=== PATIENT | female | born 1960 | race Caucasian/White ===

== ENCOUNTER 2016-08-28 12:42 | Emergency (ER) | payer BC, MEDICARE ==
[~2016-08-28] VITALS: Ht 160 cm; Wt 59.0 kg
[~2016-08-28 12:42] MED LIST: CALCTAB98 PO; CLON1 PO; CO Q100C7 PO; DIGE1CAP6 PO; OMEG306C PO; VITA200T5 PO; [UNRECOGNIZED DRUG - CODE] PO
[2016-08-28 12:50] VITALS: BP 168/93; PULSE 89; RESP 18; TEMP 98.4; O2SAT 97
[2016-08-28 13:23] LABS: AUTOMATED NEUTROPHIL # 3.1 TH/MM3 (1.8-7.7); BASOPHIL % 0.2 % (0.0-2.0); EOSINOPHIL % 0.3 % (0.0-4.0); HEMATOCRIT 37.6 % (35.0-46.0); HEMO FLAGS DIFF FINAL; LYMPH % 28.6 % (9.0-44.0); LYMPHOCYTE # 1.4 TH/MM3 (1.0-4.8); MEAN CELL VOLUME 87.8 FL (80.0-100.0); MEAN CORPUSCULAR HEMOGLOBIN 29.9 PG (27.0-34.0); MEAN CORPUSCULAR HGB CONC 34.1 % (32.0-36.0); MONO % 6.2 % (0.0-8.0); NEUT % 64.7 % (16.0-70.0); PLATELET COUNT 200 TH/MM3 (150-450); RED BLOOD COUNT 4.29 MIL/MM3 (4.00-5.30); RED CELL DISTRIBUTION WIDTH 13.2 % (11.6-17.2); WHITE BLOOD COUNT 4.8 TH/MM3 (4.0-11.0)
[2016-08-28 13:56] VITALS: BP 137/75; PULSE 83; O2SAT 100
[2016-08-28 14:00] LABS: ANION GAP 8 MEQ/L (5-15); BICARBONATE 29.2 MEQ/L (21.0-32.0); BLOOD UREA NITROGEN 9 MG/DL (7-18); CHLORIDE 104 MEQ/L (98-107); GLOMERULAR FILTRATION RATE 85 ML/MIN (>89); SODIUM (NA) 141 MEQ/L (136-145)
[2016-08-28] MEDS ORDERED: LIDOCAINE VISCOUS 2% SOLN 15 ML UDC PO ONE (14:00)
[2016-08-28] MEDS ORDERED: SODIUM CHLOR 0.9% 1000 ML INJ 1,000 ML IV SCH (14:00)
[2016-08-28] MEDS ORDERED: ALUMINUM/MAGNESIUM/SIMETH 30 ML CUP PO ONE (14:00)
[2016-08-28] MEDS ORDERED: SODIUM CHLORIDE 0.9% FLUSH 10 ML FLUSH IV FLUSH PRN (14:00)
[2016-08-28 14:04] LABS: CREATINE KINASE 149 U/L (26-192)
[2016-08-28 14:16] LABS: CKMB LESS THAN 0.5 NG/ML (0.5-3.6)
[2016-08-28 14:28] LABS: BLOOD, URINE NEG (NEG); GLUCOSE,URINE NEG (NEG); KETONE, URINE NEG (NEG); NITRITE,URINE NEG (NEG); PH, URINE 7.5 (5.0-8.5); URINE COLOR LIGHT-YELLOW (YELLW/STRAW)
[2016-08-28 14:36] LABS: COMMENT (UR) CULT NOT INDICATED; CULTURE IF INDICATED CULT NOT INDICATED
[2016-08-28 14:42] LABS: APTT (PATIENT) 26.9 SEC (24.3-30.1)
[2016-08-28] MEDS ORDERED: IOHEXOL 350 MG/ML 10 ML VIAL (for RAD DIAG) IV ONE (14:45)
--- NOTE | 2016-08-28 14:45 | PD ---
HPI Chief Complaint: Abdominal Pain Time Seen by Provider: 14:39 Travel History International Travel<30 days: No Contact w/Intl Traveler<30days: No Traveled to known affect area: No History of Present Illness HPI Patient is a 56-year-old female presented to him or tremor evaluation of chest pressure. Patient states it started 3 days ago, it has gradually migrated down to the epigastric area. Patient states at times it feels as if she has a vice inspector structural bonding around her stomach. She states her stomach feels nervous. These episodes last about 20 minutes in duration, when they do occur she feels dizzy and lightheaded and has a squeezing sensation in her throat and her heart flutters. Patient states that this occurs several times a year, she takes hydrochloric acid tablets that she gets at the [employer] store to help with her digestion. She denies any history of gastritis but states she has had an upper endoscopy as well as gastric emptying study. 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) Substance Use: No Allergies-Medications (Allergen,Severity, Reaction): Coded Allergies: No Known Allergies (Unverified , 08/28/16) Reported Meds & Prescriptions Reported Meds & Active Scripts Active Review of Systems Except as stated in HPI: all other systems reviewed are Neg General / Constitutional: No: Fever, Chills Eyes: No: Blurred Vision HENT: Positive: Lightheadedness, No: Headaches Cardiovascular: Positive: Chest Pain or Discomfort, Palpitations Respiratory: No: Cough, Shortness of Breath, Wheezing Gastrointestinal: Positive: Abdominal Pain (epigastric), No: Nausea, Vomiting , Diarrhea Genitourinary: No: Dysuria Musculoskeletal: No: Myalgias Neurologic: Positive: Dizziness, No: Focal Abnormalities, Change in Mentation Psychiatric: Positive: Anxiety Physical Exam Narrative GENERAL: Well-developed, well-nourished, alert female. Resting comfortably in no acute distress. SKIN: Focused skin assessment warm/dry. HEAD: Atraumatic. Normocephalic. EYES: Pupils equal and round. No scleral icterus. No injection or drainage. ENT: No nasal bleeding or discharge. Mucous membranes pink and moist. NECK: Trachea midline. No JVD. CARDIOVASCULAR: Regular rate and rhythm. No murmur appreciated. RESPIRATORY: No accessory muscle use. Clear to auscultation. Breath sounds equal bilaterally. GASTROINTESTINAL: Abdomen soft, non-tender, nondistended. Hepatic and splenic margins not palpable. The bowel sounds, no rebound, no guarding. MUSCULOSKELETAL: No obvious deformities. No clubbing. No cyanosis. No edema. NEUROLOGICAL: Awake and alert. No obvious cranial nerve deficits. Motor grossly within normal limits. Normal speech. PSYCHIATRIC: Anxious mood and affect; insight and judgment normal. Data Data Last Documented VS Vital Signs Date Time Temp Pulse Resp B/P Pulse Ox O2 Delivery O2 Flow Rate FiO2 08/28/16 13:56 83 137/75 100 Room Air 08/28/16 12:50 98.4 18 Orders Electrocardiogram (08/28/16 12:52) Complete Blood Count With Diff (08/28/16 12:52) Basic Metabolic Panel (Bmp) (08/28/16 12:52) Ckmb (Isoenzyme) Profile (08/28/16 12:52) Troponin I (08/28/16 12:52) Comprehensive Metabolic Panel (08/28/16 14:00) Lipase (08/28/16 14:00) Lactic Acid (08/28/16 14:00) Prothrombin Time / Inr (Pt) (08/28/16 14:00) Act Partial Throm Time (Ptt) (08/28/16 14:00) Urinalysis - C+S If Indicated (08/28/16 14:00) Ct Abd/Pel W Iv Contrast(Rout) (08/28/16 14:00) Iv Access Insert/Monitor (08/28/16 14:00) Ecg Monitoring (08/28/16 14:00) Oximetry (08/28/16 14:00) Sodium Chlor 0.9% 1000 Ml Inj (Ns 1000 M (08/28/16 14:00) Sodium Chloride 0.9% Flush (Ns Flush) (08/28/16 14:00) Al-Mag Hy-Si 40-40-4 Mg/Ml Liq (Mag-Al P (08/28/16 14:00) Lidocaine 2% Viscous (Xylocaine 2% Visco (08/28/16 14:00) CKMB (08/28/16 13:08) CKMB% (08/28/16 13:08) Chest, Single Ap (08/28/16 ) Iohexol 350 Inj (Omnipaque 350 Inj) (08/28/16 14:45) Labs Laboratory Tests Test 08/28/16 08/28/16 13:08 14:14 White Blood Count 4.8 TH/MM3 Red Blood Count 4.29 MIL/MM3 Hemoglobin 12.8 GM/DL Hematocrit 37.6 % Mean Corpuscular Volume 87.8 FL Mean Corpuscular Hemoglobin 29.9 PG Mean Corpuscular Hemoglobin 34.1 % Concent Red Cell Distribution Width 13.2 % Platelet Count 200 TH/MM3 Mean Platelet Volume 8.0 FL Neutrophils (%) (Auto) 64.7 % Lymphocytes (%) (Auto) 28.6 % Monocytes (%) (Auto) 6.2 % Eosinophils (%) (Auto) 0.3 % Basophils (%) (Auto) 0.2 % Neutrophils # (Auto) 3.1 TH/MM3 Lymphocytes # (Auto) 1.4 TH/MM3 Monocytes # (Auto) 0.3 TH/MM3 Eosinophils # (Auto) 0.0 TH/MM3 Basophils # (Auto) 0.0 TH/MM3 CBC Comment DIFF FINAL Differential Comment Sodium Level 141 MEQ/L 143 MEQ/L Potassium Level 4.0 MEQ/L 4.2 MEQ/L Chloride Level 104 MEQ/L 105 MEQ/L Carbon Dioxide Level 29.2 MEQ/L 29.3 MEQ/L Anion Gap 8 MEQ/L 9 MEQ/L Blood Urea Nitrogen 9 MG/DL 8 MG/DL Creatinine 0.71 MG/DL 0.71 MG/DL Estimat Glomerular Filtration 85 ML/MIN 85 ML/MIN Rate Random Glucose 106 MG/DL 97 MG/DL Calcium Level 9.0 MG/DL 9.1 MG/DL Total Creatine Kinase 149 U/L Creatine Kinase MB LESS THAN 0.5 NG/ML Troponin I LESS THAN 0.02 NG/ML Prothrombin Time 11.0 SEC Prothromb Time International 1.0 RATIO Ratio Activated Partial 26.9 SEC Thromboplast Time Urine Color LIGHT-YELLOW Urine Turbidity CLEAR Urine pH 7.5 Urine Specific [place] 1.004 Urine Protein NEG mg/dL Urine Glucose (UA) NEG mg/dL Urine Ketones NEG mg/dL Urine Occult Blood NEG Urine Nitrite NEG Urine Bilirubin NEG Urine Urobilinogen LESS THAN 2.0 MG/DL Urine Leukocyte Esterase NEG Urine RBC LESS THAN 1 /hpf Urine WBC LESS THAN 1 /hpf Microscopic Urinalysis Comment CULT NOT INDICATED Lactic Acid Level 0.6 mmol/L Total Bilirubin 0.4 MG/DL Aspartate Amino Transf 37 U/L (AST/SGOT) Alanine Aminotransferase 75 U/L (ALT/SGPT) Alkaline Phosphatase 122 U/L Total Protein 7.4 GM/DL Albumin 4.0 GM/DL Lipase 147 U/L MDM Medical Decision Making Medical Screen Exam Complete: Yes Emergency Medical Condition: Yes Interpretation(s) Vital Signs Date Time Temp Pulse Resp B/P Pulse Ox O2 Delivery O2 Flow Rate FiO2 08/28/16 13:56 83 137/75 100 Room Air 08/28/16 12:50 98.4 89 18 168/93 97 Differential Diagnosis Gastritis versus obstruction versus unstable angina versus atypical chest pain versus electrolyte abnormality versus arrhythmia versus other Narrative Course Patient is a 56-year-old female presenting to emergency Department with complaint of chest pain and epigastric abdominal pain that has been ongoing for 3 days. She is on disability for this disorder. Her primary care provider is Dr. Hodges. She has had a negative stress test in October 2015 with an ejection fraction of 66%. Initial EKG in the emergency Department shows sinus rhythm with a rate of 77. Patient's vital signs are stable, labs and imaging ordered and pending. IV access initiated. Patient placed on telemetry monitoring and continuous pulse oximetry. CT scan of the abdomen and pelvis shows no acute disease, tiny right renal cyst , atherosclerosis, no inflammatory changes are seen Chest x-ray is normal CBC is unremarkable CMP is unremarkable Lactic acid is 0.6 Coags are unremarkable Urinalysis is normal Troponin is less than 0.02 Patient's vital signs are stable. Discussed results of labs and imaging with my attending physician. Symptoms appear most consistent with gastritis. Patient will be given Carafate, Protonix, and Bentyl. She is advised to follow- up with her GI specialist and primary care provider. Additionally she can return to emergency department for any new or worsening symptoms. She verbalized understanding of these instructions. Patient stable for discharge. Diagnosis Primary Impression: Gastritis Qualified Code: K29.70 - Gastritis, presence of bleeding unspecified, unspecified chronicity, unspecified gastritis type Additional Impression: Chest pain, atypical Referrals: Fitz Hodges DO 2 days Non Categorical Preschool Teacher call for appointment Patient Instructions: Chest Pain (ED), Diet for Stomach Ulcers and Gastritis ( ED), Gastritis (ED), General Instructions Additional Instructions: Follow-up with her primary doctor Follow-up with your general hardware salesperson Take medications as directed Return to emergency room for any new or worsening symptoms Med/Other Pt SpecificInfo: Prescription(s) given Scripts Pantoprazole 40 Mg Tab40 Mg PO DAILY 14 Days Ref 0 Prov:Pia Lyles 08/28/16 Sucralfate Liq (Carafate Liq)1 Gm/10 Ml Susp1 Gm PO QID 10 Days Ref 0 on empty stomach Prov:Pia Lyles 08/28/16 Disposition: 01 DISCHARGE HOME Condition: Stable Pia Lyles Aug 28, 2016 14:45
[2016-08-28 14:48] LABS: ALKALINE PHOSPHATASE 122 U/L (45-117); TOTAL BILIRUBIN ADULT 0.4 MG/DL (0.2-1.0)
[2016-08-28 14:50] LABS: ALT (GPT) 75 U/L (10-53); ANION GAP 9 MEQ/L (5-15); AST (GOT) 37 U/L (15-37); BICARBONATE 29.3 MEQ/L (21.0-32.0); BLOOD UREA NITROGEN 8 MG/DL (7-18); CHLORIDE 105 MEQ/L (98-107); GLOMERULAR FILTRATION RATE 85 ML/MIN (>89); POTASSIUM 4.2 MEQ/L (3.5-5.1); SODIUM (NA) 143 MEQ/L (136-145)
--- NOTE | 2016-08-28 15:03 | RADRPT ---
EXAM DATE/TIME: 08/28/2016 14:34 [facility] COMPARISON: CTA ABDOMEN & PELVIS W 3D RECON, October 20, 2015, 20:24. INDICATIONS : Abdomen pain. IV CONTRAST: 100 cc Omnipaque 350 (iohexol) IV ORAL CONTRAST: No oral contrast ingested. RADIATION DOSE: 9.96 CTDIvol (mGy) MEDICAL HISTORY : None SURGICAL HISTORY : Appendectomy. ENCOUNTER: Initial ACUITY: 1 day PAIN SCALE: 5/10 LOCATION: Bilateral abdomen. TECHNIQUE: Volumetric scanning of the abdomen and pelvis was performed. Using automated exposure control and ad justment of the mA and/or kV according to patient size, radiation dose was kept as low as reasonably achievable to obtain optimal diagnostic quality images. FINDINGS: Lung bases are clear. Osseous structures are intact. The patient is status post appendectomy. No pleu ral or pericardial effusions are seen. Liver, gallbladder, spleen, pancreas, bilateral adrenal glands , left kidney are unremarkable. There is a tiny cortical cyst right midpole kidney laterally. Scatter ed atherosclerotic calcifications of the aorta and iliac vessels are seen. There is no aneurysm. Urin aaron bladder, uterus and adnexa are unremarkable. Unremarkable stool is noted throughout the large bow el without dilated loops. There is no adenopathy. CONCLUSION: 1. Tiny right renal cyst. 2. Atherosclerosis. 3. No inflammatory changes are seen. Elio Ordoñez MD on August 28, 2016 at 14:59 Board Certified Radiologist. This report was verified electronically.
--- NOTE | 2016-08-28 15:16 | RADRPT ---
EXAM DATE/TIME: 08/28/2016 14:49 [facility] COMPARISON: No previous studies available for comparison. INDICATIONS : Chest pressure, palpitations MEDICAL HISTORY : None. SURGICAL HISTORY : None. ENCOUNTER: Initial ACUITY: 4 - 6 days PAIN SCORE: 0/10 LOCATION: chest FINDINGS: A single view of the chest demonstrates the lungs to be symmetrically aerated without evidence of mas s, infiltrate or effusion. The cardiomediastinal contours are unremarkable. Osseous structures are intact. CONCLUSION: Normal examination. Elio Ordoñez MD on August 28, 2016 at 15:15 Board Certified Radiologist. This report was verified electronically.
[2016-08-28] MEDS ORDERED: PANT40TA3 PO (15:40)
[2016-08-28] MEDS ORDERED: CARA1SUS3 PO (15:40)
[2016-08-28 15:49] VITALS: O2SAT 98
[2016-08-28 15:56] VITALS: BP 126/74; PULSE 87; RESP 18; O2SAT 100
--- NOTE | 2016-08-29 11:50 | EKG ---
Date Performed: 08/28/2016 Time Performed: 12:59:04 PTAGE: 56 years EKG: Sinus rhythm NORMAL ECG NO PREVIOUS TRACING DOCTOR: Pérez Wilson Interpretating Date/Time 08/29/2016 11:44:42
== END 2016-08-28 15:57 | disposition home or self-care (01) ==
LOC: NEPC 12:42
DX: K29.70 Gastritis, unspecified, without bleeding (principal); R07.89 Other chest pain; R42 Dizziness and giddiness; E78.00 Pure hypercholesterolemia, unspecified; Z87.891 Personal history of nicotine dependence
CPT/HCPCS: 71010; 74177; 80048; 80053; 81001; 82550; 82552; 83605; 83690; 84484; 85025; 85610; 85730; 93005; 99285; J7030; Q9967

== ENCOUNTER 2016-09-19 15:17 | Emergency (ER) | payer OTHER, MEDICARE ==
[~2016-09-19] VITALS: Ht 160 cm; Wt 60.0 kg
[~2016-09-19 15:17] MED LIST changes: -CALCTAB98 PO; +CARA1SUS3 PO; -CLON1 PO; -CO Q100C7 PO; -DIGE1CAP6 PO; -OMEG306C PO; +PANT40TA3 PO; -VITA200T5 PO; -[UNRECOGNIZED DRUG - CODE] PO
[2016-09-19 15:21] VITALS: BP 156/76; PULSE 77; RESP 19; TEMP 98.4; O2SAT 99
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
[2016-09-19] MEDS ORDERED: ALPR.5 PO (15:35)
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
== END 2016-09-19 16:59 | disposition home or self-care (01) ==
LOC: NEPK 15:17
DX: S63.501A Unspecified sprain of right wrist, initial encounter (principal); S60.211A Contusion of right wrist, initial encounter; S60.222A Contusion of left hand, initial encounter; M54.2 Cervicalgia; E78.00 Pure hypercholesterolemia, unspecified; Z87.19 Personal history of other diseases of the digestive system; Z86.59 Personal history of other mental and behavioral disorders; V89.2XXA Person injured in unspecified motor-vehicle accident, traffic, initial encounter
CPT/HCPCS: 73110; 99284; L3908